=== PATIENT | female | born 1990 | race Caucasian/White ===

== ENCOUNTER 2018-12-10 13:58 | Emergency (ER) | payer BC, MEDICAID ==
[~2018-12-10] VITALS: Ht 162.6 cm; Wt 73.0 kg
[2018-12-10 14:38] LABS: BASOPHILS % (AUTO) 0.5 % (0-1); EOSINOPHILS % (AUTO) 0.4 % (0-6); HEMATOCRIT 40.3 % (35.0-45.0); LYMPHOCYTES # (AUTO) 1.3 X10'3 (1.1-4.8); LYMPHOCYTES % (AUTO) 13.9 % (21-51); MEAN CORPUSCULAR HEMOGLOBIN 26.3 PG (27.0-31.0); MEAN CORPUSCULAR HGB CONC 32.3 g/dL (33.0-36.5); MEAN CORPUSCULAR VOLUME 81.3 FL (78-98); MEAN PLATELET VOLUME 8.5 FL (7.4-10.4); MONOCYTES # (AUTO) 0.9 X10'3 (0-0.9); MONOCYTES % (AUTO) 9.5 % (2-12); NEUTROPHILS # (AUTO) 7.2 X10'3 (1.8-7.7); NEUTROPHILS % (AUTO) 75.7 % (42-75); PLATELET COUNT 238 X10'3 (140-440); RED BLOOD COUNT 4.96 X10'6 (4.20-5.60); RED CELL DISTRIBUTION WIDTH 14.5 % (11.5-14.5); WHITE BLOOD COUNT 9.6 X10'3 (4.5-11.0)
[2018-12-10 14:41] LABS: URINE HCG NEGATIVE (NEG)
[2018-12-10 14:48] LABS: CLARITY,URINE CLOUDY (Clear); COLOR,URINE YELLOW (Yellow); GLUCOSE, URINE NEGATIVE (Neg); KETONES,URINE 15 mg/dl (Neg); LEUKOCYTE ESTERASE ,URINE MODERATE (Neg); NITRITES, URINE POSITIVE (Neg); OCCULT BLOOD,URINE SMALL (Neg); PH,URINE 5.5 (4.8-8.0); PROTEIN,URINE TRACE mg/dl (Neg); UROBILINOGEN,URINE 0.2 E.U/dL (0.2-1.0)
[2018-12-10 14:49] LABS: UA COLLECTION TYPE CLN CATCH MIDSTREAM
[2018-12-10 14:51] LABS: ALANINE AMINOTRANSFERASE 33 U/L (12-78); ALBUMIN 4.3 G/DL (3.4-5.0); ALKALINE PHOSPHATASE 94 IU/L (46-116); ANION GAP 9 (8-16); ASPARTATE AMINO TRANSFERASE 15 U/L (10-37); BILIRUBIN,TOTAL 0.4 MG/DL (0.1-1.0); BLOOD UREA NITROGEN 9 MG/DL (7-18); BUN/CREATININE RATIO 11.5 (6.6-38.0); CALCIUM 9.7 MG/DL (8.5-10.1); CHLORIDE 101 MMOL/L (99-107); CREATININE 0.78 MG/DL (0.40-0.90); GLUCOSE 92 MG/DL (70-104); POTASSIUM 3.7 MMOL/L (3.5-5.1); SODIUM 138 MMOL/L (135-145); TOTAL CARBON DIOXIDE 28.2 MMOL/L (24-32); TOTAL PROTEIN 8.6 G/DL (6.4-8.2); eGFR 89 ML/MIN
[2018-12-10 15:01] LABS: MUCUS STRANDS FEW /LPF (Neg); SQUAMOUS EPITHELIAL CELL,UR MANY /LPF (FEW)
[2018-12-10 15:02] LABS: BACTERIA,URINE 3+ /HPF (Neg); WBC,URINE 30-50 /HPF (0-4)
[2018-12-10 15:04] LABS: WBC CLUMPS,URINE MODERATE /HPF (NEGATIVE)
[2018-12-10] MEDS ORDERED: DOXYCYCLINE 100MG CAPSULE PO STA (15:31)
[2018-12-10] MEDS ORDERED: ONDA8TAB6 PO (15:33)
[2018-12-10] MEDS ORDERED: DOXY100C43 PO (15:33)
[2018-12-10] MEDS ORDERED: ondansetron 4mg rapidly disintigrating tab PO ONE (15:35)
[2018-12-10] MEDS ORDERED: CefTRIAXone 1000mg IM Kit (w/lidocaine diluent) IM ONE (15:35)
[2018-12-10 16:31] VITALS: BP 102/76
== END 2018-12-10 16:33 | disposition home or self-care (01) ==
LOC: ER 13:59
DX: N39.0 Urinary tract infection, site not specified (principal)
CPT/HCPCS: 36415; 80053; 81001; 81025; 85025; 96372; 99283; J0696

== ENCOUNTER 2020-11-16 12:06 | Emergency (ER) | payer BC ==
[~2020-11-16] VITALS: Ht 162.6 cm; Wt 81.8 kg
[~2020-11-16 12:06] MED LIST: ONDA8TAB6 PO
[2020-11-16] MEDS ORDERED: orphenadrine citrate 60mg/2ml inj. IM ONE (14:00)
[2020-11-16] MEDS ORDERED: ketorolac tromethamine 15mg/ml inj. IM ONE (14:00)
[2020-11-16] MEDS ORDERED: ondansetron 4mg rapidly disintigrating tab PO ONE (14:45)
[2020-11-16] MEDS ORDERED: HYDROcodone/acetaminophen 10/325mg tab PO ONE (14:45)
[2020-11-16] MEDS ORDERED: CYCL-1 PO (15:18)
[2020-11-16 15:58] VITALS: BP 112/77
== END 2020-11-16 16:16 | disposition home or self-care (01) ==
LOC: ER 12:07
DX: M54.12 Radiculopathy, cervical region (principal); Z79.899 Other long term (current) drug therapy
CPT/HCPCS: 72125; 96372; 99284; J1885; J2360